=== PATIENT | female | born 1980 | race Caucasian/White ===

== ENCOUNTER 2020-07-14 11:27 | Inpatient (IN) | payer BC ==
[~2020-07-14] VITALS: Ht 170.2 cm; Wt 65.8 kg
--- NOTE | 2020-07-14 11:35 | NUR ---
EKG IN PROGRESS.
--- NOTE | 2020-07-14 11:40 | NUR ---
PT BIB SELF C/O SHARPLIKE MIDSTERNAL NON RADAITING CHEST PAIN, SOB, AND EPISODES "OF FEELING LIKE IM GOING TO FAINT" SINCE THIS MORNING WHILE AT HOME WATCHING TELELVISION. PT ALSO REPORTS "I FEEL LIKE IM NOT OXYEGENATING." PT REPORTS SHE HAS HEART FAILURE AND AN ANUTOIMMUNE DISORDER. PT IS AAOX4, NO DISTRESS NOTED, RESP E/U, LUNGS CTA, SKIN INTACT PINK WARM AND DRY. PT GOWNED AND PLACED ON FULL CM, NSR NOTED, VSS. DR HUGHES AT THE BEDSIDE FOR MSE TO PT. AWAITING FURTHER ORDERS.
[2020-07-14 11:54] LABS: BASOPHIL % 0.3 % (0-2); PLATELET COUNT 254 x10^3mcL (130-400); RED CELL DISTRIBUTION WIDTH 12.4 % (11.5-14.5)
--- NOTE | 2020-07-14 11:58 | NUR ---
XRAY AT THE BEDSIDE.
[2020-07-14 12:06] LABS: CALCIUM 9.4 mg/dL (8.5-10.1); CARBON DIOXIDE 29.3 mmol/L (21-32); CHLORIDE SERUM 103 mmol/L (98-107); CREATININE SERUM 0.8 mg/dL (0.6-1.0); GFR1 > 60 mL/min; GLUCOSE SERUM 104 mg/dL (74-106); POTASSIUM SERUM 4.2 mmol/L (3.5-5.1); SODIUM SERUM 140 mmol/L (136-145)
[2020-07-14 12:10] LABS: ALBUMIN 4.3 g/dL (3.4-5.0); ALKALINE PHOSPHATASE 61 U/L (46-116); ALT/SGPT 23 U/L (14-59); AST/SGOT 19 U/L (15-37); BILIRUBIN TOTAL 0.4 mg/dL (0.20-1.00); TOTAL PROTEIN, SERUM 7.5 g/dL (6.4-8.2)
--- NOTE | 2020-07-14 12:45 | NUR ---
PT STATES 0 PAIN AT THIS TIME. PT STATES "I HAD SOME PAIN, BUT IT WENT AWAY". PT AMBULATED TO RESTROOM AND BACK TO GIVE URINE SAMPLE. PT AMBULATED WITH STEADY GAIT. PT AAOX4, RESP E/U. NO DISTRESS NOTED AT THIS TIME. ADMITTING AT BEDSIDE.
--- NOTE | 2020-07-14 14:04 | NUR ---
PT RESTING ON ED GURNEY, RESPS E/U, ON FULL CM, IN POSITION OF COMFORT.
--- NOTE | 2020-07-14 14:44 | NUR ---
MIGUE PARK TO RESUME CARE OF PT AT THIS TIME.
--- NOTE | 2020-07-14 15:13 | NUR ---
PT LAYING IN [place] IN POSITION OF COMFORT. PT REPORTS SPEAKING WITH HER PCP VIA CELL PHONE. PT STATES SHE WILL BRING COPIES OF DISCHARGE PAPERWORK TO HER PCP F/U.
--- NOTE | 2020-07-14 16:35 | NUR ---
JACK PRIZER NOTED AT BEDSIDE FOR LAB DRAW.
--- NOTE | 2020-07-14 17:35 | NUR ---
[place] USING CE[place]. NO DISTRESS NOTED AT THIS TIME. WILL CONTINUE TO MONITOR.
[2020-07-14 17:56] LABS: FREE T4 1.06 ng/dL (0.76-1.46); FREE THYROXINE INDEX 2.5 ug/dL (1.4-4.5); T3 TOTAL 1.15 ng/mL
[2020-07-14] MEDS ORDERED: NATURE'S BLEND F1 MG PO (17:57)
--- NOTE | 2020-07-14 17:57 | NUR ---
PT LAYING IN BED IN POSITION OF COMFORT. PT AWARE OF ADMISSION PER MD.
--- NOTE | 2020-07-14 19:03 | NUR ---
PT LAYING IN GURNEY ON CELL PHONE. NO DISTRESS NOTED AT THIS TIME. AWAITING BED NI TELE.
--- NOTE | 2020-07-14 19:14 | NUR ---
REPORT GIVEN TO CAROLANN PARK WHO WILL ASSUME FURTHER CARE OF THIS PT
[2020-07-14 21:15] LABS: MAGNESIUM 2.2 mg/dL (1.8-2.4); PHOSPHOROUS 2.4 mg/dL (2.5-4.9)
[2020-07-14 21:18] LABS: CHOLESTEROL/HDL RATIO 1.9
--- NOTE | 2020-07-14 22:07 | NUR ---
REPORT GIVEN TO TIFFANIE [id number] [facility]
[2020-07-14 22:29] VITALS: BP 97/65
[2020-07-15] VITALS (7 sets, daily range): BP systolic 80–103; BP diastolic 40–61
--- NOTE | 2020-07-15 00:39 | NUR ---
22:15 PT ARRIVED TO UNIT VIA GURNEY FROM THE ED ACCOMPANIED BY ED STAFF. PT WAS ABLE TO AMBUALTE FROM GURNEY TO BED WITH A STEADY GAIT. A/OX4, CALM AND COOEPRATIVE. RESPIRATIONS EVEN, UNLABORED, RA, CTA. PT PLACED ON TELE MONITOR #[id number], SINUS ANGELA HR 51. PT DENIES DIZZINESS AT THIS TIME. REPORTS SHARP INTERMITTENT CHEST PAIN, BUT NONE AT THIS TIME. LBM 07/14. NO URINARY ISSUES. SKIN INTACT. SL R FOREARM, PATENT, NO COMPLICATIONS TO SITE. PT EDUCATED TO UISE CALL LIGHT FOR ASSISTANCE, SIT AT EDGE OF BED FOR 2-3 MINUTES PRIOR TO STANDING AND AMBULATING, AND MAINTAIN SAFE SIDE EXIT. BED IN LOWEST POSITION, SIDE RAILS X 2, CALL LIGHT WITHIN REACH .
--- NOTE | 2020-07-15 01:38 | NUR ---
PT LYING IN BED SUPINE WATCHING TV. PT DENIES CHEST PAIN AT THIS TIME. ALL NEEDS MET. BED IN LOWEST POSITON, SIDE RAILS X 2, CALL LIGHT WITHIN REACH. DARK ENVIRONMENT PROVIDED FOR PT TO SLEEP.
--- NOTE | 2020-07-15 05:26 | NUR ---
PT LYING SUPINE SLEEPING. PT SINUS ANGELA 40-50S. NO C/O DIZZINESS, LIGHTHEADEDNESS, OR CHEST PAIN DURING SHIFT. AMBULATORY WITH STEADY GAIT, INDEPENDENT FOR ADLS. ALL NEEDS MET AT THIS TIME. BED IN LOWEST POSITION, SIDE RAILS X 2, CALL LIGHT WITHIN REACH
--- NOTE | 2020-07-15 07:59 | NUR ---
PATIENT IS AOX4, SINUS ANGELA ON CAP CUTTER, RESPIRATIONS EVEN AND UNLABORED. PATIENT DENIES CHEST PAIN AT THIS TIME. REPORTS MILD HEADACHE 01/21. SAYS "I WANT TO GO HOME SOON POSSIBLE BECAUSE MY KIDS ARE HOME ALONE." EXPLAINED PLAN OF CARE. PATIENT VERBALIZED UNDERSTANDING. WILL CONTINUE TO MONITOR.
[2020-07-15 08:46] LABS: CARBON DIOXIDE 25.2 mmol/L (21-32); CHLORIDE SERUM 105 mmol/L (98-107); CREATININE SERUM 0.7 mg/dL (0.6-1.0); GFR1 > 60 mL/min; GLUCOSE SERUM 83 mg/dL (74-106); MAGNESIUM 2.2 mg/dL (1.8-2.4); PHOSPHOROUS 3.6 mg/dL (2.5-4.9); POTASSIUM SERUM 4.1 mmol/L (3.5-5.1); SODIUM SERUM 138 mmol/L (136-145)
[2020-07-15 08:48] LABS: BASOPHIL % 0.7 % (0-2); PLATELET COUNT 226 x10^3mcL (130-400); RED CELL DISTRIBUTION WIDTH 12.5 % (11.5-14.5)
--- NOTE | 2020-07-15 16:34 | NUR ---
DISCHARGE INSTRUCTIONS EXPLAINED TO PATIENT INCLUDING FOLLOW UP APPOINTMENT. PATIENT VERBALIZED UNDERSTANDING OF ALL D/C INSTRUCTIONS. IV REMOVED WITH CATHETER TIP INTACT.
== END 2020-07-15 17:15 | disposition home or self-care (01) | DRG 316 ==
LOC: ED 11:27 → DU 18:27 → MU 07-15 16:01
PROVIDERS: Emergency Medicine; Internal Medicine; ADMIT Internal Medicine; ATTEND Internal Medicine
DX: I31.3 Pericardial effusion (noninflammatory) (principal); E83.39 Other disorders of phosphorus metabolism; K90.0 Celiac disease
CPT/HCPCS: 83880; 84439; 85378; G0378; J1885; Q0092